=== PATIENT | female | born 1995 | race Hispanic/Latino ===

== ENCOUNTER 2020-08-30 13:27 | Outpatient (CLI) | payer OTHER ==
--- NOTE | 2020-08-30 14:51 | ULT ---
EXAM: OB ultrasound COMPARISON: None. HISTORY: Positive . Evaluate cervical length and anatomy. TECHNIQUE: Multiplanar grayscale and color Doppler transabdominal sonographic images are obtained. FINDINGS: There is a single intrauterine gestation in variable but predominantly transverse presentat ion. Cardiac Doppler demonstrates heart tones with a heart rate of 144 beats per minute. The placenta is located posteriorly without evidence of placenta previa. There is a normal am ount of amniotic fluid with an amniotic fluid index of 13.68 centimeters. The cervical length based on transabdominal imaging measures 4.8 centimeters. biometry measurements: BPD 4.66 cm -- 20 weeks 1 day HC 17.67 cm -- 20 weeks 2 days AC 16.02 cm -- 21 weeks 1 day FL 3.44 cm -- 20 weeks 6 days The estimated gestational age by ultrasound is 20 weeks 5 days with an BAMBI on01/12/2021. Gestational a ge by the last menstrual period is 21 weeks 3 days. The estimated weight by ultrasound is 383 g (14 ounces). This represents 19 percentile for feta l weight. A 4 chambered heart is difficult to definitively delineate on this exam. The cerebellum, visualized p ortions of the spine, kidneys, and urinary bladder demonstrate a normal sonographic appearance. Cord insertion is not well assessed on this exam primarily related to positioning. Three-vessel cord is not definitely visualized. No anomalies are seen. Adnexal structures are not well visualized on this exam. IMPRESSION: 1. Single intrauterine gestation in variable but predominantly transverse presentation with hea rt tones documented. Estimated gestational age by ultrasound is 20 weeks 5 days. 2. Estimated weight is 383 g (14 ounces). 3. Amniotic fluid index is 13.68 centimeters.
== END 2020-08-30 13:28 | disposition home or self-care (01) ==
LOC: BICULT 13:27
PROVIDERS: ATTEND Family Medicine
DX: Z34.02 Encounter for supervision of normal first pregnancy, second trimester (principal); O32.2XX0 Maternal care for transverse and oblique lie, not applicable or unspecified; Z3A.20 20 weeks gestation of pregnancy
CPT/HCPCS: 76805